=== PATIENT | male | born 1965 | race Caucasian/White ===

== ENCOUNTER 2020-07-29 17:01 | Emergency (ER) | payer OTHER ==
--- NOTE | 2020-07-29 17:25 | PDOC ---
Rapid Medical Evaluation Time Seen by Provider: 07/29/20 17:20 Medical Evaluation: 07/29/20 17:20 I performed a brief in-person evaluation of this patient. Pt is a 55 y/o male who presents to the ED with complaint of HTN. Was seen at a clinic and had BP of 172/115 mmHg. He has h/o HTN but has not been taking medication. He denies sob, cp, n/v/d/c. [place] because of the pandemic. He is unsure of the name of the medications. Pertinent physical exam findings: S1S2, clear lungs I have ordered the following: saline lock, labs, ekg Patient to proceed to ED for further evaluation. Discharge Disposition - Diagnosis High blood pressure - Referrals - Patient Instructions - Post Discharge Activity
[2020-07-29 17:35] VITALS: BP 166/116; PULSE 101; TEMP 98.1; BMI 30.8
== END 2020-07-29 19:45 | disposition left against medical advice (07) ==
LOC: JER 17:01
DX: I10 Essential (primary) hypertension (principal)
CPT/HCPCS: 99285-25